=== PATIENT | female | born 1940 ===

== ENCOUNTER → 2017-02-21 | Outpatient (CLI) | payer MEDICARE, OTHER ==
[~2017-02-21] MED LIST: "\\\"PREP SPRAY\\\"-TIN4 OZ"; ASCORBIC ACID500 MG PO; ATIVAN 0.5MG0.5 MG PO; BUSPAR10 MG PO; CELEXA40 MG PO; EFFEXOR XR75 MG PO; EXTRA STRENGTH500 MG PO; KEFLEX250 MG PO; LANTUS100 UNIT/1 SUB-Q; LEVOTHROID (SY25 MCG PO; LIPITOR80 MG PO; MYCOSTATIN(NYST15 GM TOP; NORVASC5 MG PO; NOVOLOG100 UNIT/M SUB-Q; PRESERVISION A1 EACH PO; PRILOSEC20 M1 PO; PRINIVIL (ZESTR20 MG PO; PROTONIX40 MG; ULTRAM50 MG PO; ZOLOFT100 M1 PO
== END | disposition disaster alternative care site (69) ==
LOC: GRAD 13:05
DX: M54.2 Cervicalgia (principal); M54.9 Dorsalgia, unspecified; Z53.8 Procedure and treatment not carried out for other reasons

== ENCOUNTER → 2017-03-05 | Outpatient (CLI) | payer MEDICARE, OTHER | LOC: LFPA 15:47 | DX: R30.0 Dysuria (principal) ==

== ENCOUNTER → 2017-03-14 | Outpatient (CLI) | payer MEDICARE, OTHER | END | disposition disaster alternative care site (69) | LOC: GPOC 03-12 15:00 → GOPP 10:36 | PROC: B01BYZZ Fluoroscopy of Spinal Cord using Other Contrast (ICD-10-PCS; principal; 2017-03-14) | DX: M54.9 Dorsalgia, unspecified (principal); M54.2 Cervicalgia; M47.892 Other spondylosis, cervical region; M47.896 Other spondylosis, lumbar region; M41.9 Scoliosis, unspecified; M48.02 Spinal stenosis, cervical region; M48.06 Spinal stenosis, lumbar region; Z98.890 Other specified postprocedural states ==